=== PATIENT | female | born 1970 | race Caucasian/White ===

== ENCOUNTER 2016-11-27 21:14 | Emergency (ER) | payer SELFPAY ==
[~2016-11-27] VITALS: Ht 162.6 cm; Wt 78.0 kg
[2016-11-27 21:17] VITALS: Ht 162.6 cm; Wt 78.0 kg
[2016-11-27] MEDS ORDERED: MULT1TAB6 PO (23:57)
[2016-11-27] MEDS ORDERED: IBUP200C11 PO (23:57)
[2016-11-28] MEDS ORDERED: LORAZEPAM 2 MG INJ IM ONE
[2016-11-28] MEDS ORDERED: DIPHENHYDRAMINE 50 MG INJ IM ONE
[2016-11-28] MEDS ORDERED: LORA1TAB PO (00:20)
--- NOTE | 2016-11-28 00:22 | ERD ---
ER Documentation Chief Complaint Date/Time DATE: 11/28/16 TIME: 00:21 Chief Complaint headache x 3 days, right ear ache HPI This a 46-year-old female who comes in with a headache for 3 days. She has been going on for the past 3 days. Mild to moderate intensity. Feels very stressed on feels it is related to anxiety. Denies any focal neurological complaints. Denies any head trauma. Denies any visual acuity changes. No other current complaints. ROS All systems reviewed and are negative except as per history of present illness. Medications Home Meds Active Scripts Lorazepam* (Lorazepam*) 1 Mg Tablet, 1 MG PO Q8, #10 TAB Prov:NAHOMI HUMPHRIES 11/28/16 Reported Medications Ibuprofen* (Advil*) 200 Mg Capsule, 600 MG PO Q6H Y for PAIN, CAP 11/27/16 Folic Acid/Mv,Fe,Other Min (Centrum Complete Multivit Tab) 1 Each Tablet, 1 EACH PO, TAB 11/27/16 Allergies Allergies: Coded Allergies: No Known Allergy (Unverified , 11/27/16) PMhx/Soc Medical and Surgical Hx: pt denies Medical Hx, pt denies Surgical Hx History of Surgery: No Anesthesia Reaction: No Hx Neurological Disorder: No Hx Respiratory Disorders: No Hx Cardiac Disorders: No Hx Psychiatric Problems: No Hx Miscellaneous Medical Probl: No Hx Alcohol Use: No Hx Substance Use: No Hx Tobacco Use: No Smoking Status: Never smoker Physical Exam Vitals Vital Signs Date Time Temp Pulse Resp B/P Pulse Ox O2 Delivery O2 Flow Rate FiO2 11/27/16 21:17 98.3 68 20 130/83 98 Physical Exam Const: [] Head: Atraumatic Eyes: Normal Conjunctiva ENT: Normal External Ears, Nose and Mouth. Neck: Full range of motion..~ No meningismus. Resp: Clear to auscultation bilaterally Cardio: Regular rate and rhythm, no murmurs Abd: Soft, non tender, non distended. Normal bowel sounds Skin: No petechiae or rashes Back: No midline or flank tenderness Ext: No cyanosis, or edema Neur: Awake and alert Psych: Normal Mood and Affect Results 24 hrs Current Medications Medications (Trade) Dose Ordered Sig/Zhane Route PRN Reason Start Time Stop Time Status Last Admin Dose Admin Lorazepam (Ativan) 1 mg ONCE ONCE IM 11/28/16 00:00 11/28/16 00:01 DC 11/28/16 00:09 Diphenhydramine HCl (Benadryl) 25 mg ONCE ONCE IM 11/28/16 00:00 11/28/16 00:01 DC 11/28/16 00:09 Procedures/MDM Patient's neurologic symptoms have stabilized while they have been evaluated in the department and are appropriate for outpatient work up. No e/o meningitis, intracranial bleed, seizure, stroke. Patient feels much better post Ativan. Will be discharged home a short course of lorazepam. Told to return for any return of headaches. Given strict aftercare instructions for headaches. At this point patient continues to serial normal neurological examinations. Pain is resolved completely. Non-ataxic gait. Discharged with family member. Departure Diagnosis: Primary Impression: Headache Headache type: tension-type Headache chronicity pattern: acute headache Intractability: not intractable Qualified Code: G44.209 - Acute non intractable tension-type headache Condition: Stable Patient Instructions: Tension Headaches NAHOMI HUMPHRIES November 28, 2016 00:22
[2016-11-28 00:50] VITALS: BP 101/65; PULSE 68; RESP 18; TEMP 98.4
== END 2016-11-28 01:02 | disposition home or self-care (01) ==
LOC: FTE 21:14 → E/R 11-28 01:02
DX: G44.209 Tension-type headache, unspecified, not intractable (principal); R40.2142 Coma scale, eyes open, spontaneous, at arrival to emergency department; R40.2252 Coma scale, best verbal response, oriented, at arrival to emergency department; R40.2362 Coma scale, best motor response, obeys commands, at arrival to emergency department
CPT/HCPCS: 93005; J1200; J2060